=== PATIENT | female | born 1955 | race Caucasian/White ===

== ENCOUNTER → 2017-07-06 | Emergency (ER) | payer SELFPAY ==
[~2017-07-06] VITALS: Ht 162.6 cm; Wt 60.7 kg
[~2017-07-06] MED LIST: ASPI-516 CHEW; ASPI81TA82 PO; ASPIRIN 81 MG CHEW TAB PO ONE; BACL10TA PO; CO-E50CA PO; DICL75 PO; LORTA5 PO; OMEG100046 PO; SODIUM CHLORIDE 0.9% FLUSH 10 ML FLUSH IVF PRN; SUBO2MIS SL; [UNRECOGNIZED DRUG - OTHER] PO
[2017-07-06 23:26] VITALS: BP 181/86; PULSE 77; RESP 16; TEMP 97.6; O2SAT 100
--- NOTE | 2017-07-07 01:12 | PD ---
HPI Chief Complaint: Dizziness Time Seen by Provider: 01:03 Travel History International Travel<30 days: No Contact w/Intl Traveler<30days: No Traveled to known affect area: No History of Present Illness HPI Patient is a 62-year-old female presents emergency department for evaluation of palpitations and intermittent chest pain. Patient states that she started having palpitations earlier today and felt very dizzy and fatigued almost like she was going to pass out on multiple occasions. She also states that her vision became very starry at one point. She had never had palpitations prior today. On further questioning the patient also states she has been having a vague chest discomfort on and off for the past few weeks. She is a smoker, has no primary care physician has not had a checkup for many years. She denies any shortness of breath but endorses some mild nausea with this. All of her symptoms today started approximately 1600. PFSH Past Medical History Diminished Hearing: No Psychiatric: Yes (HX IF IV OPIATE ABUSE) Influenza Vaccination: No ?: Not LMP: POST MENAPAUSAL HX TUBAL : 3 Para: 3 Tubal Ligation: Yes Past Surgical History Section: Yes (X3) Other Surgery: No Social History Alcohol Use: Yes (OCC) Tobacco Use: Yes (1 PP WEEK) Substance Use: Yes (IN THE PAST shoot up opiateS QUIT 2011) Allergies-Medications (Allergen,Severity, Reaction): Coded Allergies: No Known Allergies (Unverified Adverse Reaction, Unknown, 07/07/17) Reported Meds & Prescriptions Reported Meds & Active Scripts Active Reported Fish Oil 1,000 mg Softgel ([place]-3/Dha/Epa/Fish Oil) 1,000 Mg (120 Mg-180 Mg) Capsule 1 Cap PO DAILY Aspirin 81 Mg Chew 324 Mg CHEW DAILY Review of Systems Except as stated in HPI: all other systems reviewed are Neg Physical Exam Narrative GENERAL: Well-developed, well-nourished, anxious but in no obvious distress SKIN: Focused skin assessment warm/dry. HEAD: Atraumatic. Normocephalic. EYES: Pupils equal and round. No scleral icterus. No injection or drainage. ENT: No nasal bleeding or discharge. Mucous membranes pink and moist. NECK: Trachea midline. No JVD. CARDIOVASCULAR: Regular rate and rhythm. No murmur appreciated. 2+ bilateral equal pulses in all 4 extremities. RESPIRATORY: No accessory muscle use. Clear to auscultation. Breath sounds equal bilaterally. GASTROINTESTINAL: Abdomen soft, non-tender, nondistended. Hepatic and splenic margins not palpable. MUSCULOSKELETAL: No obvious deformities. No clubbing. No cyanosis. No edema. NEUROLOGICAL: Awake and alert. No obvious cranial nerve deficits. Motor grossly within normal limits. Normal speech. PSYCHIATRIC: Appropriate mood and affect; insight and judgment normal. Data Data Last Documented VS Vital Signs Date Time Temp Pulse Resp B/P (MAP) Pulse Ox O2 Delivery O2 Flow Rate FiO2 07/07/17 04:00 70 20 152/92 (112) 99 07/07/17 02:03 Room Air 07/06/17 23:26 97.6 Orders Orders Electrocardiogram (07/07/17 ) Ckmb (Isoenzyme) Profile (07/07/17 01:11) Complete Blood Count With Diff (07/07/17 01:11) Comprehensive Metabolic Panel (07/07/17 01:11) Magnesium (Mg) (07/07/17 01:11) Prothrombin Time / Inr (Pt) (07/07/17 01:11) Act Partial Throm Time (Ptt) (07/07/17 01:11) Troponin I (07/07/17 01:11) Lipase (07/07/17 01:11) Ecg Monitoring (07/07/17 01:11) Iv Access Insert/Monitor (07/07/17 01:11) Oximetry (07/07/17 01:11) Oxygen Administration (07/07/17 01:11) Aspirin Chew (Aspirin Chew) (07/07/17 01:15) Sodium Chloride 0.9% Flush (Ns Flush) (07/07/17 01:15) Chest, Pa & Lat (07/07/17 01:11) Thyroid Stimulating Hormone (07/07/17 01:11) CKMB (07/07/17 02:20) CKMB% (07/07/17 02:20) Labs Laboratory Tests Test 07/07/17 01:55 07/07/17 02:20 White Blood Count 7.9 TH/MM3 Red Blood Count 5.11 MIL/MM3 Hemoglobin 14.5 GM/DL Hematocrit 44.7 % Mean Corpuscular Volume 87.5 FL Mean Corpuscular Hemoglobin 28.4 PG Mean Corpuscular Hemoglobin Concent 32.5 % Red Cell Distribution Width 13.8 % Platelet Count 247 TH/MM3 Mean Platelet Volume 8.8 FL CBC Comment AUTO DIFF Differential Total Cells Counted 100 Neutrophils % (Manual) 73 % Band Neutrophils % 1 % Lymphocytes % 24 % Monocytes % 2 % Neutrophils # (Manual) 5.8 TH/MM3 Differential Comment FINAL DIFF MANUAL Platelet Estimate NORMAL Platelet Morphology Comment NORMAL Red Cell Morphology Comment NORMAL Prothrombin Time 10.2 SEC Prothromb Time International Ratio 1.0 RATIO Activated Partial Thromboplast Time 26.5 SEC Blood Urea Nitrogen 16 MG/DL Creatinine 0.68 MG/DL Random Glucose 97 MG/DL Total Protein 7.5 GM/DL Albumin 3.3 GM/DL Calcium Level 8.2 MG/DL Magnesium Level 1.9 MG/DL Alkaline Phosphatase 98 U/L Aspartate Amino Transf (AST/SGOT) 60 U/L Alanine Aminotransferase (ALT/SGPT) 44 U/L Total Bilirubin 0.4 MG/DL Sodium Level 138 MEQ/L Potassium Level 4.8 MEQ/L Chloride Level 104 MEQ/L Carbon Dioxide Level 30.1 MEQ/L Anion Gap 4 MEQ/L Estimat Glomerular Filtration Rate 88 ML/MIN Total Creatine Kinase 101 U/L Creatine Kinase MB 2.4 NG/ML Troponin I LESS THAN 0.02 NG/ML Lipase 76 U/L Thyroid Stimulating Hormone 3rd Gen 3.230 uIU/ML MDM Medical Decision Making Medical Screen Exam Complete: Yes Emergency Medical Condition: Yes Interpretation(s) EKG shows normal sinus rhythm normal axis and normal R-wave progression. Nonspecific RSR prime pattern in V1, intervals within normal limits, no concerning ST segment changes. Borderline EKG per Differential Diagnosis ACS, [place], palpitations, electrolyte abnormality, hyperthyroidism Narrative Course Patient room to the emergency department, certainly her palpitations with her vague describing chest discomfort is cause for concern in this patient with a smoking history for coronary artery disease. Initial EKG and troponin are reassuring. Chest x-ray was negative. I highly recommend to this patient that she stay in the chest pain center for further workup as she has no primary care physician to follow up with. I also discussed with her the risks of leaving AGAINST MEDICAL ADVICE including major adverse cardiac event which carries with it a risk of and permanent disability including being dependent on life support for the rest of her life. She verbalized understanding and accepted these risks but expressed her desire to sign out AGAINST MEDICAL ADVICE. I discussed with her that she needs to follow-up with a molasses coloring operator have given her referral, discussed she is more than welcome to return to the emergency department any time for further workup Diagnosis Primary Impression: Chest pain Additional Impression: Palpitations Referrals: Lucio Hart MD Patient Instructions: Chest Pain (ED), General Instructions Additional Instructions: You are welcome to return to the ER at any time for further evaluation. Disposition: 01 DISCHARGE HOME Condition: Stable Felipe Benítez MD Jul 07, 2017 01:12
[2017-07-07 02:03] VITALS: BP 177/81; PULSE 71; RESP 20; O2SAT 99
[2017-07-07 02:09] LABS: HEMATOCRIT 44.7 % (35.0-46.0); HEMOGLOBIN 14.5 GM/DL (11.6-15.3); MEAN CELL VOLUME 87.5 FL (80.0-100.0); MEAN CORPUSCULAR HEMOGLOBIN 28.4 PG (27.0-34.0); MEAN CORPUSCULAR HGB CONC 32.5 % (32.0-36.0); MEAN PLATELET VOLUME 8.8 FL (7.0-11.0); PLATELET COUNT 247 TH/MM3 (150-450); RED BLOOD COUNT 5.11 MIL/MM3 (4.00-5.30); RED CELL DISTRIBUTION WIDTH 13.8 % (11.6-17.2); WHITE BLOOD COUNT 7.9 TH/MM3 (4.0-11.0)
[2017-07-07 02:10] VITALS: BP 150/94; PULSE 76; RESP 20; O2SAT 98
--- NOTE | 2017-07-07 02:32 | RADRPT ---
EXAM DATE/TIME: 07/07/2017 01:30 [facility] COMPARISON: No previous studies available for comparison. INDICATIONS : Chest pain, dizziness, weakness for 12 hours MEDICAL HISTORY : None. SURGICAL HISTORY : None. ENCOUNTER: Initial ACUITY: 1 day PAIN SCORE: 5/10 LOCATION: Bilateral chest FINDINGS: PA and lateral views of the chest demonstrate the lungs to be symmetrically with mild hyperinflation but no acute infiltrate. Mild degenerative spurring of the dorsal spine. CONCLUSION: Mild hyperinflation. Otherwise negative. Jarek Chris MD on July 07, 2017 at 2:29 Board Certified Radiologist. This report was verified electronically.
[2017-07-07 02:39] LABS: CHLORIDE 104 MEQ/L (98-107); SODIUM (NA) 138 MEQ/L (136-145)
[2017-07-07 02:42] LABS: CALCIUM 8.2 MG/DL (8.5-10.1)
[2017-07-07 02:43] LABS: ALBUMIN 3.3 GM/DL (3.4-5.0); BICARBONATE 30.1 MEQ/L (21.0-32.0); BLOOD UREA NITROGEN 16 MG/DL (7-18); GLUCOSE,RANDOM 97 MG/DL (74-106); MAGNESIUM 1.9 MG/DL (1.5-2.5); PROTHROMBIN TIME - PATIENT 10.2 SEC (9.8-11.6)
[2017-07-07 02:44] LABS: BANDS 1 % (0-6); LYMPHOCYTES 24 % (9-44); MONOCYTES 2 % (0-8); NEUTROPHIL # MANUAL DIFF 5.8 TH/MM3 (1.8-7.7); POLYS (SEG NEUTROPHILS) 73 % (16-70)
[2017-07-07 02:45] LABS: ALT (GPT) 44 U/L (10-53); AST (GOT) 60 U/L (15-37)
[2017-07-07 02:46] LABS: CREATININE 0.68 MG/DL (0.50-1.00); GLOMERULAR FILTRATION RATE 88 ML/MIN (>89)
[2017-07-07 02:47] LABS: TOTAL BILIRUBIN ADULT 0.4 MG/DL (0.2-1.0); TOTAL PROTEIN 7.5 GM/DL (6.4-8.2)
[2017-07-07 02:48] LABS: ALKALINE PHOSPHATASE 98 U/L (45-117)
[2017-07-07 02:51] LABS: TROPONIN I LESS THAN 0.02 NG/ML (0.02-0.05)
[2017-07-07 03:00] VITALS: BP 151/72; PULSE 74; RESP 20; O2SAT 98
[2017-07-07 04:00] VITALS: BP 152/92
--- NOTE | 2017-07-07 11:11 | EKG ---
Date Performed: 07/07/2017 Time Performed: 01:18:59 PTAGE: 62 years EKG: Sinus rhythm POSSIBLE RIGHT VENTRICULAR CONDUCTION DELAY BORDERLINE ECG NO PREVIOUS TRACING DOCTOR: Taj Alcantar Interpretating Date/Time 07/07/2017 11:07:53
== END | disposition home or self-care (01) ==
LOC: PHED 23:19
DX: R07.9 Chest pain, unspecified (principal); Z53.21 Procedure and treatment not carried out due to patient leaving prior to being seen by health care provider; R00.2 Palpitations; R42 Dizziness and giddiness; R53.83 Other fatigue; R94.31 Abnormal electrocardiogram [ECG] [EKG]; Z72.0 Tobacco use
CPT/HCPCS: 71046; 80053; 82550; 82552; 83690; 83735; 84443; 84484; 85007; 85027; 85610; 85730; 93005; 99283

== ENCOUNTER 2017-07-10 19:05 | Observation (INO) | payer SELFPAY ==
[~2017-07-10] VITALS: Ht 162.6 cm; Wt 58.2 kg
[~2017-07-10 19:05] MED LIST changes: -ASPI81TA82 PO; -ASPIRIN 81 MG CHEW TAB PO ONE; -BACL10TA PO; -CO-E50CA PO; -DICL75 PO; -LORTA5 PO; -SODIUM CHLORIDE 0.9% FLUSH 10 ML FLUSH IVF PRN; -SUBO2MIS SL; -[UNRECOGNIZED DRUG - OTHER] PO
[2017-07-10 19:20] VITALS: BP 185/98; PULSE 92; RESP 18; TEMP 98.9; O2SAT 100
[2017-07-10 19:50] VITALS: BP 186/97; PULSE 83; RESP 18; O2SAT 99
--- NOTE | 2017-07-10 20:12 | PD ---
HPI Chief Complaint: Cardiac Complaint Time Seen by Provider: 20:05 Travel History International Travel<30 days: No Contact w/Intl Traveler<30days: No Traveled to known affect area: No History of Present Illness HPI 62-year-old female here for evaluation of chest pain. The patient reports intermittent chest pain for the last 4 days. She was seen in the emergency department on 07/06/17 and at that time was recommended that she stay in the chest pain center for further cardiac evaluation. She decided she did not want to stay at that time and left AMA. She is back today because she is still having these pains intermittently. She experienced the pain this morning as well as this afternoon. She took two 81 mg aspirins today. Currently she is pain-free. She describes an ache over her left chest that radiates to her left shoulder. There are no modifying factors to this pain. She denies any known cardiac history, however her father of an UT at the age of 64. She has history of IVDU using IV Dilaudid, last use was 2 weeks ago. She states she is on Suboxone for this. No history of DVT or PE. She smokes about a pack of cigarettes every 3 days. She had bronchitis in April of this year, otherwise no recent fevers, chills, cough, or recent illness. PFSH Past Medical History Diminished Hearing: No Psychiatric: Yes (HX IF IV OPIATE ABUSE) : 3 Para: 3 Tubal Ligation: Yes Past Surgical History Section: Yes (X3) Other Surgery: No Social History Alcohol Use: Yes (OCC) Tobacco Use: Yes (1 PP WEEK) Substance Use: Yes (IN THE PAST shoot up opiateS QUIT 2011) Allergies-Medications (Allergen,Severity, Reaction): Coded Allergies: No Known Allergies (Unverified Adverse Reaction, Unknown, 07/07/17) Reported Meds & Prescriptions Reported Meds & Active Scripts Active Reported Suboxone Sublingual Film (Buprenorphine-Naloxone Sublingual Film) 2-0.5 Mg Film 1 Film SL Unique ID number required: Fish Oil 1,000 mg Softgel ([place]-3/Dha/Epa/Fish Oil) 1,000 Mg (120 Mg-180 Mg) Capsule 1 Cap PO DAILY Aspirin 81 Mg Chew 324 Mg CHEW DAILY Review of Systems Except as stated in HPI: all other systems reviewed are Neg Physical Exam Narrative GENERAL: Well-developed, well-nourished, comfortable, no apparent distress. SKIN: Focused skin assessment warm/dry. HEAD: Atraumatic. Normocephalic. EYES: Pupils equal and round. No scleral icterus. No injection or drainage. ENT: Mucous membranes pink and moist. NECK: Trachea midline. No JVD. CARDIOVASCULAR: Regular rate and rhythm. Distal pulses brisk and equal bilaterally. RESPIRATORY: No accessory muscle use. Clear to auscultation. Breath sounds equal bilaterally. GASTROINTESTINAL: Abdomen soft, non-tender, nondistended. MUSCULOSKELETAL: No obvious deformities. No clubbing. No cyanosis. No edema. NEUROLOGICAL: Awake and alert. No obvious cranial nerve deficits. Motor grossly within normal limits. Normal speech. PSYCHIATRIC: Appropriate mood and affect; insight and judgment normal. Data Data Last Documented VS Vital Signs Date Time Temp Pulse Resp B/P (MAP) Pulse Ox O2 Delivery O2 Flow Rate FiO2 07/10/17 21:51 87 16 151/99 (116) 99 Room Air 07/10/17 19:20 98.9 Orders Orders Electrocardiogram (07/10/17 20:17) Basic Metabolic Panel (Bmp) (07/10/17 20:17) Ckmb (Isoenzyme) Profile (07/10/17 20:17) Complete Blood Count With Diff (07/10/17 20:17) Magnesium (Mg) (07/10/17 20:17) Prothrombin Time / Inr (Pt) (07/10/17 20:17) Act Partial Throm Time (Ptt) (07/10/17 20:17) Troponin I (07/10/17 20:17) Chest, Single Ap (07/10/17 20:17) Ecg Monitoring (07/10/17 20:17) Iv Access Insert/Monitor (07/10/17 20:17) Oximetry (07/10/17 20:17) Aspirin Chew (Aspirin Chew) (07/10/17 20:30) Sodium Chloride 0.9% Flush (Ns Flush) (07/10/17 20:30) Labs Laboratory Tests Test 07/10/17 20:30 White Blood Count 7.4 TH/MM3 Red Blood Count 5.02 MIL/MM3 Hemoglobin 15.3 GM/DL Hematocrit 44.6 % Mean Corpuscular Volume 88.9 FL Mean Corpuscular Hemoglobin 30.5 PG Mean Corpuscular Hemoglobin Concent 34.3 % Red Cell Distribution Width 13.8 % Platelet Count 258 TH/MM3 Mean Platelet Volume 7.9 FL Neutrophils (%) (Auto) 56.7 % Lymphocytes (%) (Auto) 30.4 % Monocytes (%) (Auto) 8.1 % Eosinophils (%) (Auto) 2.3 % Basophils (%) (Auto) 2.5 % Neutrophils # (Auto) 4.1 TH/MM3 Lymphocytes # (Auto) 2.3 TH/MM3 Monocytes # (Auto) 0.6 TH/MM3 Eosinophils # (Auto) 0.2 TH/MM3 Basophils # (Auto) 0.2 TH/MM3 CBC Comment DIFF FINAL Differential Comment Prothrombin Time 10.0 SEC Prothromb Time International Ratio 1.0 RATIO Activated Partial Thromboplast Time 22.9 SEC Blood Urea Nitrogen 16 MG/DL Creatinine 0.63 MG/DL Random Glucose 93 MG/DL Calcium Level 8.6 MG/DL Magnesium Level 2.2 MG/DL Sodium Level 139 MEQ/L Potassium Level 4.6 MEQ/L Chloride Level 107 MEQ/L Carbon Dioxide Level 26.7 MEQ/L Anion Gap 5 MEQ/L Estimat Glomerular Filtration Rate 96 ML/MIN Total Creatine Kinase 94 U/L Troponin I LESS THAN 0.02 NG/ML MDM Medical Decision Making Medical Screen Exam Complete: Yes Emergency Medical Condition: Yes Interpretation(s) EKG: Sinus, rate 92, normal axis, normal intervals, no acute ischemic abnormality. Differential Diagnosis Unstable angina, ACS, pneumothorax, pericarditis, PE, pneumonia Narrative Course Vital signs reviewed. CBC is unremarkable. BMP is unremarkable. Cardiac enzymes are negative. Chest x-ray: No acute disease. The patient took two 81 mg of aspirin earlier today. She was given another 2 here in the emergency department. She was made aware of all findings and will be admitted to the chest pain center for further cardiac evaluation. She is amenable to this plan. Case discussed with hospitalist Dr. Whaley who will admit the patient to the hospitalist service. Diagnosis Primary Impression: Chest pain Qualified Codes: R07.9 - Chest pain, unspecified Admitting Information Admitting Physician Requests: Observation Lei Barker MD Jul 10, 2017 20:12
[2017-07-10] MEDS ORDERED: SUBO2MIS SL (20:14)
[2017-07-10] MEDS ORDERED: ASPIRIN 81 MG CHEW TAB PO ONE (20:30)
[2017-07-10] MEDS ORDERED: SODIUM CHLORIDE 0.9% FLUSH 10 ML FLUSH IVF PRN (20:30)
[2017-07-10 20:45] LABS: AUTOMATED NEUTROPHIL # 4.1 TH/MM3 (1.8-7.7); BASOPHIL # 0.2 TH/MM3 (0-0.2); BASOPHIL % 2.5 % (0.0-2.0); EOSINOPHIL # 0.2 TH/MM3 (0-0.4); EOSINOPHIL % 2.3 % (0.0-4.0); HEMATOCRIT 44.6 % (35.0-46.0); HEMOGLOBIN 15.3 GM/DL (11.6-15.3); LYMPH % 30.4 % (9.0-44.0); LYMPHOCYTE # 2.3 TH/MM3 (1.0-4.8); MEAN CELL VOLUME 88.9 FL (80.0-100.0); MEAN CORPUSCULAR HEMOGLOBIN 30.5 PG (27.0-34.0); MEAN CORPUSCULAR HGB CONC 34.3 % (32.0-36.0); MEAN PLATELET VOLUME 7.9 FL (7.0-11.0); MONO % 8.1 % (0.0-8.0); MONOCYTE # 0.6 TH/MM3 (0-0.9); NEUT % 56.7 % (16.0-70.0); PLATELET COUNT 258 TH/MM3 (150-450); RED BLOOD COUNT 5.02 MIL/MM3 (4.00-5.30); RED CELL DISTRIBUTION WIDTH 13.8 % (11.6-17.2); WHITE BLOOD COUNT 7.4 TH/MM3 (4.0-11.0)
[2017-07-10 20:52] LABS: CHLORIDE 107 MEQ/L (98-107); SODIUM (NA) 139 MEQ/L (136-145)
[2017-07-10 20:55] LABS: CALCIUM 8.6 MG/DL (8.5-10.1)
[2017-07-10 20:56] LABS: BICARBONATE 26.7 MEQ/L (21.0-32.0); BLOOD UREA NITROGEN 16 MG/DL (7-18); GLUCOSE,RANDOM 93 MG/DL (74-106); MAGNESIUM 2.2 MG/DL (1.5-2.5)
[2017-07-10 20:59] LABS: CREATININE 0.63 MG/DL (0.50-1.00); GLOMERULAR FILTRATION RATE 96 ML/MIN (>89)
[2017-07-10 21:04] LABS: TROPONIN I LESS THAN 0.02 NG/ML (0.02-0.05)
--- NOTE | 2017-07-10 21:28 | RADRPT ---
EXAM DATE/TIME: 07/10/2017 20:27 [facility] COMPARISON: No previous studies available for comparison. INDICATIONS : Chest pain. MEDICAL HISTORY : None. SURGICAL HISTORY : None. ENCOUNTER: Initial ACUITY: 4 - 6 days PAIN SCORE: 4/10 LOCATION: Left chest FINDINGS: A single view of the chest demonstrates the lungs to be symmetrically aerated without evidence of mas s, infiltrate or effusion. The cardiomediastinal contours are unremarkable. Osseous structures are intact. CONCLUSION: No acute disease. Collins Portillo MD on July 10, 2017 at 21:25 Board Certified Radiologist. This report was verified electronically.
[2017-07-10 21:29] VITALS: BP 172/100; PULSE 87; RESP 16; O2SAT 99
[2017-07-10 21:51] VITALS: BP 151/99; PULSE 87; RESP 16; O2SAT 99
[2017-07-10] MEDS ORDERED: SODIUM CHLORIDE 0.9% FLUSH 10 ML FLUSH IV FLUSH PRN (22:15)
[2017-07-10 23:11] VITALS: BP 131/71; PULSE 72; RESP 20; TEMP 97; O2SAT 98
[2017-07-10 23:33] VITALS: PULSE 62
[2017-07-11] VITALS: BP 145/81; PULSE 64; RESP 20; TEMP 96.8; O2SAT 98; O2SAT 99
[2017-07-11 00:30] LABS: TROPONIN I LESS THAN 0.02 NG/ML (0.02-0.05)
[2017-07-11 03:05] LABS: TROPONIN I LESS THAN 0.02 NG/ML (0.02-0.05)
[2017-07-11 04:00] VITALS: BP 137/84; PULSE 72; RESP 20; TEMP 97.6; O2SAT 98
[2017-07-11 08:00] VITALS: BP 128/70; PULSE 62; RESP 16; TEMP 97.3; O2SAT 98
--- NOTE | 2017-07-11 08:19 | HHI.HP ---
[facility] No Primary Care Physician Admission Diagnosis Chest Pain Diagnoses: (1) Chest pain Chief Complaint: Chest pain Travel History International Travel<30 Days: No Contact w/Intl Traveler <30 Da: No Traveled to Known Affected Are: No History of Present Illness This is a 62-year-old female with a known medical history of IV drug abuse who presented to the ED with complaints of chest pain. Patient states that she has been having intermittent episodes of chest pain and feeling faint for over the past 2 months. She did present to the ED 5 days ago with similar complaints. At that time patient left AMA stating she had to take care of things at home. Patient came back today with continued midsternal chest pain that radiated to her left chest and left armpit. Admits to associated diaphoresis, shortness of breath and nausea, denies any vomiting. Patient states that the pain lasts roughly an hour at a time and is relieved with sitting down. She also states that she took aspirin which did help the pain. She does admit to increased stress at work, and relates the pain possibly to this. She denies any recent illness including fever, chills, cough, shortness of breath, abdominal pain, nausea, vomiting or diarrhea or dysuria. Patient does admit to having bronchitis earlier this year. She denies ever having a cardiac stress test in the past. 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 Family history significant for father having an KS at the age of 64. Does admit to tobacco use. Last IV drug use was 1 month ago, patient uses Dilaudid. Is on Suboxone. At the time of assessment patient is lying in bed comfortably, pain has resolved. Troponins are flat. EKG reviewed. Review of Systems Constitutional: COMPLAINS OF: Diaphoretic episodes, DENIES: Fatigue, Fever, Chills Eyes: DENIES: Blurred vision, Diplopia Respiratory: COMPLAINS OF: Shortness of breath, DENIES: Cough, Sputum production Cardiovascular: COMPLAINS OF: Chest pain, Palpitations Gastrointestinal: COMPLAINS OF: Nausea, DENIES: Abdominal pain, Black stools, Bloody stools, Constipation, Diarrhea, Vomiting Neurologic: DENIES: Abnormal gait Psychiatric: COMPLAINS OF: Anxiety Except as stated in HPI: all other systems reviewed are Neg Past Family Social History Past Medical History IV drug abuse Dilaudid Past Surgical History 3 Reported Medications Active Reported Suboxone Sublingual Film (Buprenorphine-Naloxone Sublingual Film) 2-0.5 Mg Film 1 Film SL Unique ID number required: Fish Oil 1,000 mg Softgel ([place]-3/Dha/Epa/Fish Oil) 1,000 Mg (120 Mg-180 Mg) Capsule 1 Cap PO DAILY Aspirin 81 Mg Chew 324 Mg CHEW DAILY Allergies: Coded Allergies: No Known Allergies (Unverified Adverse Reaction, Unknown, 07/07/17) Active Ordered Medications Current Medications Medications (Trade) Dose Ordered Sig/Harris Route Start Time Stop Time Status Last Admin (NS Flush) 2 ml UNSCH PRN IV FLUSH 07/10/17 22:15 (NS Flush) 2 ml BID IV FLUSH 07/11/17 09:00 Family History Father had a significant medical history of KS at the age of 6464 years old. Social History Patient does admit to smoking 1 pack of cigarettes every 3 days. Denies any alcohol use. Admits to occasional IV drug use with Dilaudid. Last use was 1 month ago. Physical Exam Vital Signs Vital Signs Date Time Temp Pulse Resp B/P (MAP) Pulse Ox O2 Delivery O2 Flow Rate FiO2 07/11/17 04:00 97.6 72 20 137/84 (101) 98 07/11/17 00:00 96.8 64 20 145/81 (102) 98 07/11/17 00:00 99 21 07/10/17 23:33 62 07/10/17 23:19 07/10/17 23:11 97.0 72 20 131/71 (91) 98 07/10/17 21:51 87 16 151/99 (116) 99 Room Air 07/10/17 21:29 87 16 172/100 (124) 99 Room Air 07/10/17 19:50 83 18 99 Room Air 07/10/17 19:50 83 18 186/97 (126) 99 07/10/17 19:20 98.9 92 18 185/98 (127) 100 Physical Exam GENERAL: Well-developed, well-nourished patient in NAD. SKIN: Warm and dry. No rash. HEAD: Normocephalic. Atraumatic. EYES: Pupils equal and round. No scleral icterus. No injection or drainage. ENT: No nasal bleeding or discharge. Mucous membranes pink and moist. NECK: Supple. Trachea midline. CARDIOVASCULAR: Regular rate and rhythm. S1, S2 noted. No murmur appreciated. No chest pain to palpation. RESPIRATORY: No accessory muscle use. Clear to auscultation. Breath sounds equal bilaterally. GASTROINTESTINAL: Abdomen soft, non-tender, nondistended. Normoactive bowel sounds x4. MUSCULOSKELETAL: No obvious deformities. Extremities without clubbing, cyanosis , or edema. NEUROLOGICAL: Awake and alert. No obvious cranial nerve deficits. Motor grossly within normal limits. 5/5 muscle strength in bilateral upper and lower extremities. Normal speech. PSYCHIATRIC: Appropriate mood and affect; insight and judgment normal. Laboratory Laboratory Tests Test 07/10/17 20:30 07/10/17 23:30 07/11/17 02:35 White Blood Count 7.4 Red Blood Count 5.02 Hemoglobin 15.3 Hematocrit 44.6 Mean Corpuscular Volume 88.9 Mean Corpuscular Hemoglobin 30.5 Mean Corpuscular Hemoglobin Concent 34.3 Red Cell Distribution Width 13.8 Platelet Count 258 Mean Platelet Volume 7.9 Neutrophils (%) (Auto) 56.7 Lymphocytes (%) (Auto) 30.4 Monocytes (%) (Auto) 8.1 Eosinophils (%) (Auto) 2.3 Basophils (%) (Auto) 2.5 Neutrophils # (Auto) 4.1 Lymphocytes # (Auto) 2.3 Monocytes # (Auto) 0.6 Eosinophils # (Auto) 0.2 Basophils # (Auto) 0.2 CBC Comment DIFF FINAL Differential Comment Prothrombin Time 10.0 Prothromb Time International Ratio 1.0 Activated Partial Thromboplast Time 22.9 Blood Urea Nitrogen 16 Creatinine 0.63 Random Glucose 93 Calcium Level 8.6 Magnesium Level 2.2 Sodium Level 139 Potassium Level 4.6 Chloride Level 107 Carbon Dioxide Level 26.7 Anion Gap 5 Estimat Glomerular Filtration Rate 96 Total Creatine Kinase 94 68 61 Troponin I LESS THAN 0.02 LESS THAN 0.02 LESS THAN 0.02 Result Diagram: 07/10/17202907/10/172029 Imaging Last Impressions Chest X-Ray 07/10/172016 Signed Impressions: Service Date/Time: Monday, July 10, 2017 20:27 - CONCLUSION: No acute disease. Collins Portillo MD Septic Shock Reassessment Septic shock perfusion: reassessment completed Caprini VTE Risk Assessment Caprini VTE Risk Assessment: No/Low Risk (score <= 1) Caprini Risk Assessment Model Point Value = 1 Point Value = 2 Point Value = 3 Point Value = 5 Age 41-60 Minor surgery BMI > 25 kg/m2 Swollen legs Varicose veins or History of unexplained or recurrent spontaneous Oral contraceptives or hormone replacement Sepsis (< 1 month) Serious lung disease, including pneumonia (< 1 month) Abnormal pulmonary function Acute myocardial infarction Congestive heart failure (< 1 month) History of inflammatory bowel disease Medical patient at bed rest Age 61-74 Arthroscopic surgery Major open surgery (> 45 min) Laparoscopic surgery (> 45 min) Malignancy Confined to bed (> 72 hours) Immobilizing plaster cast Central venous access Age >= 75 History of VTE Family history of VTE Factor V Leiden Prothrombin [id number] Lupus anticoagulant Anticardiolipin antibodies Elevated serum homocysteine Heparin-induced thrombocytopenia Other congenital or acquired thrombophilia Stroke (< 1 month) Elective arthroplasty Hip, pelvis, or leg fracture Acute spinal cord injury (< 1 month) Prophylaxis Regimen Total Risk Factor Score Risk Level Prophylaxis Regimen 0-1 Low Early ambulation 2 Moderate Order ONE of the following: *Sequential Compression Device (SCD) *Heparin 5000 units SQ BID 3-4 Higher Order ONE of the following medications: *Heparin 5000 units SQ TID *Enoxaparin/Lovenox 40 mg SQ daily (WT < 150 kg, CrCl > 30 mL/min) *Enoxaparin/Lovenox 30 mg SQ daily (WT < 150 kg, CrCl > 10-29 mL/min) *Enoxaparin/Lovenox 30 mg SQ BID (WT < 150 kg, CrCl > 30 mL/min) AND/OR *Sequential Compression Device (SCD) 5 or more Highest Order ONE of the following medications: *Heparin 5000 units SQ TID (Preferred with Epidurals) *Enoxaparin/Lovenox 40 mg SQ daily (WT < 150 kg, CrCl > 30 mL/min) *Enoxaparin/Lovenox 30 mg SQ daily (WT < 150 kg, CrCl > 10-29 mL/min) *Enoxaparin/Lovenox 30 mg SQ BID (WT < 150 kg, CrCl > 30 mL/min) AND *Sequential Compression Device (SCD) Assessment and Plan Problem List: (1) Chest pain ICD Code: R07.9 - Chest pain, unspecified Status: Acute Plan: Patient has been admitted to the chest pain center for observation. Serial EKGs and serial troponins have been ordered for ruling out ACS purposes. Troponins are flat. EKG reviewed showing sinus rhythm with no arrhythmias. Cardiac telemetry continued no arrhythmias overnight. Chest pain has now resolved. Vital signs are stable overnight. Chest x-ray reviewed showing no acute disease. CBC and BMP unremarkable. Was given aspirin in ED. Patient will undergo a cardiac nuclear stress test to further rule out any ischemia. Further hospitalization and treatment plan will depend on results. Patient is stable at this time and agreeable to the plan. Assessment and Plan Patient underwent cardiac nuclear stress test, report reviewed showing EF of 67% . Low risk category. Unremarkable myocardial perfusion exam. Intact wall motion and thickening without hypokinetic or dyskinetic segments. Patient updated about results. Will discharge today home with recommendations to follow -up with PCP. Patient is educated if chest pain continues or worsens to return to ED for further evaluation. At this time chest pain has now resolved. Patient will be allowed to eat. And will be discharged. Patient is agreeable to the plan. Problem Qualifiers (1) Chest pain: Qualified Codes: R07.9 - Chest pain, unspecified AntonietaLindseybob REHMAN Jul 11, 2017 08:19
--- NOTE | 2017-07-11 08:45 | EKG ---
Date Performed: 07/10/2017 Time Performed: 19:39:13 PTAGE: 62 years EKG: Sinus rhythm POSSIBLE LEFT ATRIAL ENLARGEMENT POSSIBLE RIGHT VENTRICULAR CONDUCTION DELAY BORDERLINE ECG PREVIOUS TRACING : 07/07/2017 01.18 No significant change from previous tracing noted. DOCTOR: Daniel Cruz Interpretating Date/Time 07/11/2017 08:34:31
[2017-07-11] MEDS ORDERED: SODIUM CHLORIDE 0.9% FLUSH 10 ML FLUSH IV FLUSH SCH (09:00)
[2017-07-11 12:00] VITALS: BP 126/72; PULSE 64; RESP 16; TEMP 97.6; O2SAT 96
--- NOTE | 2017-07-11 12:36 | RADRPT ---
EXAM DATE/TIME: 07/11/2017 10:32 [facility] COMPARISON: No previous studies available for comparison. INDICATIONS : Left chest pain radiating to the left shoulder. Angina. DOSE: 25.6 mCi Tc99m Myoview at stress. 8.3 mCi Tc99m Myoview at rest. 0.4 mg Lexiscan STRESS SYMPTOMS: Dyspnea, chest pressure and headache. EJECTION FRACTION: 67% MEDICAL HISTORY : Smoker. SURGICAL HISTORY : Tubal ligation. ENCOUNTER: Initial ACUITY: 4 - 6 days PAIN SCALE: 6/10 LOCATION: Left chest TECHNIQUE: The patient underwent pharmacologic stress with infusion of prescribed dose. Continuous ECG tracing was monitored during stress. Gated SPECT imaging was performed after stress and conventional SPECT i maging was performed at rest. The examination was performed on a SPECT/CT scanner, both attenuation and non-corrected datasets were reviewed. FINDINGS: DISTRIBUTION: The maximum perfused segment at stress is in the anterior lateral wall. PERFUSION STUDY: The pattern of perfusion at stress is within normal limits. GATED STUDY: There is intact wall motion and thickening without hypokinetic or dyskinetic segments. CONCLUSION: Unremarkable myocardial perfusion exam. RISK CATEGORY: Low Jimbo Negron MD on July 11, 2017 at 12:33 Board Certified Radiologist. This report was verified electronically.
[2017-07-11 12:58] VITALS: PULSE 58
--- NOTE | 2017-07-11 12:59 | HHI.DCPOC ---
Discharge Care Plan Diagnosis: (1) Chest pain (2) Palpitations Goals to Promote Your Health * To prevent worsening of your condition and complications * To maintain your health at the optimal level Directions to Meet Your Goals Take your medications as prescribed Follow your dietary instruction Follow activity as directed Keep your appointments as scheduled Take your immunizations and boosters as scheduled If your symptoms worsen call your PCP, if no PCP go to Urgent Care Center or Emergency Room Smoking is Dangerous to Your Health. Avoid second hand smoke Call the 24-hour hour crisis hotline for domestic abuse at [facility] F[facility] Jul 11, 2017 12:59
--- NOTE | 2017-07-11 14:56 | EKG ---
Date Performed: 07/11/2017 Time Performed: 02:30:27 PTAGE: 62 years EKG: Sinus rhythm POSSIBLE RIGHT VENTRICULAR CONDUCTION DELAY BORDERLINE ECG PREVIOUS TRACING : 07/11/2017 00.05 No significant change from previous tracing noted. DOCTOR: Daniel Cruz Interpretating Date/Time 07/11/2017 14:55:03
--- NOTE | 2017-07-11 14:58 | EKG ---
Date Performed: 07/11/2017 Time Performed: 00:05:49 PTAGE: 62 years EKG: Sinus rhythm POSSIBLE RIGHT VENTRICULAR CONDUCTION DELAY BORDERLINE ECG PREVIOUS TRACING : 07/10/2017 19.39 No significant change from previous tracing noted. DOCTOR: Daniel Cruz Interpretating Date/Time 07/11/2017 14:55:55
--- NOTE | 2017-07-11 18:53 | TR ---
Date Performed: 07/11/2017 Time Performed: 11:24:14 DOCTOR: Mariia Rai DRUG LIST: CLINICAL HISTORY: REASON FOR TEST: Chest pain REASON FOR ENDING: OBSERVATION: CONCLUSION: Lexiscan stress test was performed under standard four minute protocol. Radionuclid e was injected one minute prior to ending the test. No electrocardiographic abormalities were present to suggest ischemia. Nuclear imaging and interpretation are pending. COMMENTS:
[2017-07-11] MEDS ORDERED: REGADENOSON INJ 0.4 MG/5 ML SYR IV ONE (22:15)
== END 2017-07-11 14:03 | disposition home or self-care (01) ==
LOC: PHED 19:05 → PHEDA 22:14 → PH3B 23:11
PROVIDERS: ADMIT Hospitalist; ATTEND Hospitalist
DX: R07.89 Other chest pain (principal); R00.2 Palpitations; R06.02 Shortness of breath; R61 Generalized hyperhidrosis; R11.0 Nausea; M79.602 Pain in left arm; F17.210 Nicotine dependence, cigarettes, uncomplicated; F11.90 Opioid use, unspecified, uncomplicated; Z82.49 Family history of ischemic heart disease and other diseases of the circulatory system
CPT/HCPCS: 71045; 78452; 80048; 82550; 83735; 84484; 85025; 85610; 85730; 93005; 93017; 99285; A9502; G0378; J2785